=== PATIENT | male | born 1990 | race Caucasian/White ===

== ENCOUNTER → 2016-07-24 | Outpatient (CLI) | payer BC, OTHER ==
--- NOTE | 2016-07-24 09:35 | DIAGNOSTIC IMAGING REPORT ---
ABDOMINAL WALL ULTRASOUND CLINICAL HISTORY: Abdominal wall mass. Possible hernia. COMPARISON STUDY: No previous studies for comparison. FINDINGS: There is an incompletely reducible moderate sized fat-containing supraumbilical hernia. The hernia sac measures approximately 2.5 cm. The neck of the hernia measures approximately 3 mm. IMPRESSION: Incompletely reducible moderate-sized fat-containing supraumbilical abdominal wall hernia. Electronically signed by: Josh Reese M.D. 07/24/2016 9:34 AM Dictated Date/Time: 07/24/2016 9:31 AM
== END | disposition home or self-care (01) ==
LOC: C.ULTR 09:08
PROVIDERS: ATTEND Family Medicine
DX: R19.00 Intra-abdominal and pelvic swelling, mass and lump, unspecified site (principal)

== ENCOUNTER → 2017-04-13 | Day surgery (SDC) | payer OTHER ==
[2017-04-09 08:05] VITALS: Ht 170.2 cm; Wt 72.7 kg
[~2017-04-13] VITALS: Ht 170.2 cm; Wt 72.7 kg
[~2017-04-13] MED LIST: ATROPINE SULFATE 0.1 MG/ML 5ML SYR IV PRN; BUPIVACAINE 0.5 % 5 MG/1 ML MPF 30ML VIAL ONE; CEFAZOLIN 2000MG IV PUSH 15 ML IV SCH; DEXAMETHASONE SOD INJ 4 MG/ML VIAL ONE; DICY10CA55 PO; DIPH-416 PO; EpHEDrine SULFATE INJ 50 MG/ML AMP IV PRN; FENTANYL CITRATE INJ 50 MCG/1 ML 2 ML VIAL IV PRN; FENTANYL CITRATE INJ 50 MCG/1 ML 2 ML VIAL ONE; FLUT0.15 NAE; HYDR-5688 PO; HYDROCODONE/ACETAMIN 5/325MG TAB PO PRN; KETOROLAC TROMETHAMINE 30 MG/ML VIAL ONE; LACTATED RINGER'S 1000ML 1,000 ML IV SCH; LIDOCAINE HCL 2% 2 ML VIAL (20MG/ML) ONE; MIDAZOLAM HCL 1 MG/ML 2ML VIAL ONE; MULT-506 PO; ONDANSETRON INJ 2 MG/ML 2 ML VIAL IV PRN; ONDANSETRON INJ 2 MG/ML 2 ML VIAL ONE; PROPOFOL IV EMULSION 10 MG/ML 20 ML VIAL IV ONE; SODIUM CHLORIDE 0.9% 1000ML 1,000 ML IV SCH
--- NOTE | 2017-04-13 10:41 | Discharge Instructions-SurgCtr ---
Discharge Instructions Date of Service Apr 13, 2017. Visit Reason for Visit: Ventral Hernia Discharge Discharge Diagnosis / Problem: ventral hernia Discharge Goals Goal(s): Decrease discomfort, Improve function, Improve disease control Activity Recommendations Activity Limitations: as noted below Lifting Limitations: no more than 25 pounds (for 4 weeks) Exercise/Sports Limitations: until after follow-up appointment May Resume Sexual Activity: when tolerated Shower/Bathe: keep incision dry (may shower over incision in 2 days- Sun 04/15) Driving or Machine Use: resume 3 days after discharge Anesthesia . Post Anesthesia Instructions: If you have had General Anesthesia or IV Sedation: * Do not drive today. * Resume driving when surgeon permits. * Do not make important decisions or sign legal documents today. * Call surgeon for: 1. Temperature elevations greater than 101 degrees F. 2. Uncontrollable pain. 3. Excessive bleeding. 4. Persistent nausea and vomiting. 5. Medication intolerance (nausea, vomiting or rash). * For nausea and vomiting use only clear liquids such as: tea, soda, bouillon until nausea subsides, then gradually increase diet as tolerated. * If you have any concerns or questions, call your surgeon's office. If physician is unavailable and it is an emergency, call 911 or go to the nearest emergency room. . Instructions / Follow-Up Instructions / Follow-Up SPECIAL CARE INSTRUCTIONS: * Cover incisions and change daily for comfort/drainage. * Leave steri strips in place * May use ibuprofen for pain as tolerated. * Expect some swelling and bruising. Call your doctor if: * Temperature above 101 degrees * Pain not relieved by pain medicine ordered * There is increased drainage or redness from any incision * You have any unanswered questions or concerns [phone]. FOLLOW UP VISIT: If not already scheduled, please call the office for a follow-up visit. for 2 weeks- no sutures to remove OFFICE PHONE NUMBER: Dr. De La Cruz Office Diet Recommendations Home Diet: resume previous diet Pending Studies Studies pending at discharge: no Medical Emergencies . Who to Call and When: Medical Emergencies: If at any time you feel your situation is an emergency, please call 911 immediately. . Non-Emergent Contact Non-Emergency issues call your: Primary Care Provider, Surgeon . . "Provider Documentation" section prepared by Darin De La Cruz. .
--- NOTE | 2017-04-13 12:05 | History & Physical Bridge - [place] ---
H&P Re-Evaluation Bridge Note: I have examined the patient, reviewed the History & Physical and in the interval since the performance of the History & Physical I have noted the following changes of clinical significance: No changes noted
--- NOTE | 2017-04-13 12:41 | [facility] Operative Report ---
Operative Report Operative Date Apr 13, 2017. Pre-Operative Diagnosis Ventral hernia Post-Operative Diagnosis Same as pre-op Procedure(s) Performed ventral hernia repair Surgeon Motor Vehicle License Clerk Surgeon(s) Karlie MIXON Estimated Blood Loss 5ml Findings 0.5 cm defect, 3 cm sac Specimens A.Ventral hernia sac and contents Drains None Anesthesia Type General Complication(s) none Disposition Recovery Room / PACU I attest to the content of the Intraoperative Record and any orders documented therein. Any exceptions are noted below.
--- NOTE | 2017-04-13 12:59 | OPERATIVE REPORT ---
DATE OF OPERATION: 04/13/2017 NAME OF OPERATION: Ventral hernia repair. PREOPERATIVE DIAGNOSIS: Ventral hernia. POSTOPERATIVE DIAGNOSIS: Same with 0.5-cm defect. STAFF SURGEON: Dr. Darin De La Cruz. VISCOSE CELLAR WORKER: Viv Moore PA-C ANESTHESIA: General. DESCRIPTION OF PROCEDURE: The patient was brought into the operating room and placed on the operating table in the supine position. His abdomen was prepped and draped in the usual fashion. Several centimeters above the umbilicus, a transverse incision was made using 0.5% plain Marcaine to anesthetize the skin and subcutaneous tissue. Incision was made, carrying dissection down identifying the sac, which was relatively large of approximately 3 cm. When mobilized, the tissue inside was partially excised. The defect was only approximately 0.5 cm in diameter. Some of the tissue was then reduced and then the defect closed using an interrupted 0 Ethibond suture. Deep tissue was reapproximated using 2-0 plain catgut suture and then the skin reapproximated using subcuticular 5-0 Monocryl and Steri-Strips. The patient was transferred to recovery room in stable condition. As a note, my lens assistant helped with prepping, draping, exposure of the hernia, repair of the hernia and closure of the wound. I attest to the content of the Intraoperative Record and any orders documented therein. Any exception s are noted below.
[2017-04-13 13:28] VITALS: TEMP 36.9
--- NOTE | 2017-04-13 13:44 | Anesthesia Progress Nt - [facility] ---
Anesthesia Post Op Note Date & Time Apr 13, 2017 at 13:44 Vital Signs Pain Intensity: 4 Vital Signs Past 12 Hours Date Time Temp Pulse Resp B/P (MAP) Pulse Ox O2 Delivery O2 Flow Rate FiO2 04/13/17 13:28 36.9 63 18 126/80 (95) 100 Room Air 04/13/17 13:23 36.8 56 16 124/78 100 Room Air 04/13/17 13:22 65 20 100 04/13/17 13:22 65 20 04/13/17 13:21 124/78 04/13/17 13:17 60 14 100 04/13/17 13:17 62 14 04/13/17 13:16 54 15 04/13/17 13:16 53 15 135/71 100 04/13/17 13:11 56 18 129/76 100 04/13/17 13:11 57 18 04/13/17 13:06 52 14 04/13/17 13:06 52 14 130/79 100 04/13/17 13:01 54 16 123/74 100 04/13/17 13:01 54 16 04/13/17 12:56 51 13 04/13/17 12:56 52 13 114/70 100 04/13/17 12:55 49 12 04/13/17 12:55 49 12 100 04/13/17 12:53 36.6 58 16 113/54 100 Room Air 04/13/17 12:51 113/64 04/13/17 10:24 36.7 56 16 126/81 (96) 99 Room Air Notes Mental Status: alert / awake / arousable, participated in evaluation Pt Amnestic to Procedure: Yes Nausea / Vomiting: adequately controlled Pain: adequately controlled Airway Patency, RR, SpO2: stable & adequate BP & HR: stable & adequate Hydration State: stable & adequate Anesthetic Complications: no major complications apparent
[2017-04-13 13:55] VITALS: BP 119/73; PULSE 58; O2SAT 100
--- NOTE | 2017-04-20 10:17 | EDITING REQUIRED CODING QUERY ---
CODING QUERY To promote full compliance with coding requirements relating to patient care, provider participation is requested in all cases of boiler water tester uncertainty. Please assist us with the question(s) below: Coding Question(s): Please clarify the laterality of the Ventral Hernia Repair. Physician's Response(s): midline above umbilicus approx. 3-4 cm Thank you Molly Crandall Principal Diagnosis: "_that condition established after study, to be chiefly responsible for occasioning the admission of the patient to the hospital for care." Co-Existing Principal Diagnosis: "_when two or more diagnoses equally meet the criteria for principal diagnosis as determined by the circumstances of admission, diagnostic work up, and/or therapy provided, and the Alphabetic Index, Tabular List, or another coding guideline does not provide sequencing direction, any one of the diagnoses may be sequenced first." "When the physician has documented what appears to be a current diagnosis in the body of the record, but has not included the diagnosis in the final diagnostic statement, the physician should be asked whether the diagnosis should be added." (Source [facility]oding [facility] 2 QTR90. p3-4)
== END | disposition home or self-care (01) ==
LOC: X.SURG 10:17
PROVIDERS: ATTEND Surgery
DX: K43.9 Ventral hernia without obstruction or gangrene (principal); K58.9 Irritable bowel syndrome, unspecified; Z98.890 Other specified postprocedural states; Z79.899 Other long term (current) drug therapy